=== PATIENT | female | born 1990 | race Caucasian/White ===

== ENCOUNTER 2016-09-04 21:06 | Emergency (ER) | payer OTHER ==
--- NOTE | 2016-09-16 10:36 | ED NURSING NOTES ---
Clinical Report - Nurses [facility] [address] [place] [address] 09/04/2016 21:06 Patient: HASEEB BOYER DISPOSITION / DISCHARGE 21:30. Departure time: 2129. The patient left the Emergency Department before triage. The patient appears to be alert, oriented x4, coherent and in no acute distress. She notified the ED staff prior to leaving the department and stated is leaving the ED due to the long waiting time. Patient left without signing form prior to leaving. She left the Emergency Department ambulatory and via private vehicle. --21:38 Laurie Gupta R.N. Locked/Released at 09/16/2016 10:35 by Hanny Govea R.N.
--- NOTE | 2016-09-16 10:36 | ED NURSING NOTES ---
Clinical Report - Nurses [facility] [address] [place] [address] 09/04/2016 21:06 Patient: HASEEB BYOER DISPOSITION / DISCHARGE 21:30. Departure time: 2129. The patient left the Emergency Department before triage. The patient appears to be alert, oriented x4, coherent and in no acute distress. She notified the ED staff prior to leaving the department and stated is leaving the ED due to the long waiting time. Patient left without signing form prior to leaving. She left the Emergency Department ambulatory and via private vehicle. --21:38 Laurie Gupta R.N. Locked/Released at 09/16/2016 10:35 by Hanny Govea R.N.
== END 2016-09-04 21:30 | disposition left against medical advice (07) ==
LOC: ED SRH 21:06
DX: Z53.21 Procedure and treatment not carried out due to patient leaving prior to being seen by health care provider (principal)